=== PATIENT | female | born 1950 | race Asian ===

== ENCOUNTER 2020-08-13 02:00 | Outpatient (CLI) | payer OTHER, SELFPAY ==
[2020-08-13 18:59] LABS: SARS-CoV-2 RNA PCR Negative
== END 2020-08-13 02:01 | disposition home or self-care (01) ==
LOC: ANHCOVIDDT 02:00
PROVIDERS: PCP Family Medicine; Visit Provider Internal Medicine Critical Care Medicine
DX: R68.89 Other general symptoms and signs (principal); Z20.828 Contact with and (suspected) exposure to other viral communicable diseases
CPT/HCPCS: 87635; C9803; U0003

== ENCOUNTER 2020-10-27 09:29 | Outpatient (CLI) | payer OTHER, SELFPAY | END 2020-10-27 09:30 | disposition home or self-care (01) | LOC: ANHCOVIDVC 09:29 | PROVIDERS: PCP Family Medicine | DX: Z23 Encounter for immunization (principal) | CPT/HCPCS: 0001A; 91300 ==

== ENCOUNTER 2020-11-17 09:25 | Outpatient (CLI) | payer OTHER, SELFPAY | END 2020-11-17 09:26 | disposition home or self-care (01) | LOC: ANHCOVIDVC 09:25 | PROVIDERS: PCP Family Medicine | DX: Z23 Encounter for immunization (principal) | CPT/HCPCS: 0002A; 91300 ==

== ENCOUNTER 2022-02-08 10:28 | Outpatient (CLI) | payer OTHER, SELFPAY ==
--- NOTE | ~2022-02-08 | XR_ITS ---
XR lumbar spine 2-3V DATE: 02/08/2022 11:03 INDICATION: Low back pain TECHNIQUE: AP, lateral, coned lateral lumbosacral views COMPARISON: 11/27/2017 lumbar spine FINDINGS: Again noted is prominent degenerative changes apophyseal joints and lower lumbar and lumbos acral area with grade 2 anterolisthesis at L4-5. Moderately severe degenerative disc disease at L4-5 and L5-S1 with mild degenerative disc disease of the remaining lumbar interspaces. No fracture or bone destruction is evident. The lumbar and included lower thoracic pedicles are intac t. The sacroiliac joints appear normal. Status post cholecystectomy. IMPRESSION: Grade 2 anterolisthesis at L4-5 due to degenerative change of the tarsal joints Moderately severe degenerative disc disease at L4-5 and L5-S1, mild degenerative disc disease at the remaining lumbar spine Reviewed, dictated and finalized at location A. IMPRESSION: Grade 2 anterolisthesis at L4-5 due to degenerative change of the t arsal joints Moderately severe degenerative disc disease at L4-5 and L5-S1, mild degenerativ e disc disease at the remaining lumbar spine
--- NOTE | ~2022-02-08 | XR_ITS ---
XR thoracic spine 3V DATE: 02/08/2022 11:03 INDICATION: Low back pain TECHNIQUE: AP, lateral and swimmer views COMPARISON: None FINDINGS: There is mild anterolisthesis and mild degenerative disease at C4-5 and C5-6. Moderately severe degenerative disease at C6-7. There is degenerative spurring of the thoracic spine. No fracture or dislocation or bone destruction. The thoracic pedicles are intact. No paraspinal soft tissue thickening. Surgical clips, right upper quadrant, consistent with cholecystectomy. IMPRESSION: Degenerative changes of the cervical and thoracic spine Status post cholecystectomy Reviewed, dictated and finalized at location A.
== END 2022-02-08 10:29 | disposition home or self-care (01) ==
PROVIDERS: PCP Family Medicine; Visit Provider Family Medicine
DX: M51.36 Other intervertebral disc degeneration, lumbar region (principal); M51.37 Other intervertebral disc degeneration, lumbosacral region; Z90.49 Acquired absence of other specified parts of digestive tract; M51.34 Other intervertebral disc degeneration, thoracic region
CPT/HCPCS: 72072; 72100

== ENCOUNTER 2022-11-21 11:50 | Outpatient (CLI) | payer OTHER, SELFPAY ==
--- NOTE | ~2022-11-21 | XR_ITS ---
Right Shoulder Technique: AP and scapular Y views were obtained. Clinical History: Pain Findings: No fracture or dislocation is seen. Osseous alignment is anatomic. Minimal degenerative spu rring at the AC joint and humerus noted. Soft tissues are unremarkable. Impression: Minimal degenerative spurring, as above. No fracture or dislocation. Reviewed, dictated and finalized at location . Impression: Minimal degenerative spurring, as above. No fracture or dislocation.
== END 2022-11-21 11:51 | disposition home or self-care (01) ==
LOC: ANHIMG 11:56
PROVIDERS: PCP Family Medicine; Visit Provider Family Medicine
DX: M25.511 Pain in right shoulder (principal)
CPT/HCPCS: 73030

== ENCOUNTER 2023-04-01 09:57 | Emergency (ER) | payer OTHER, SELFPAY ==
--- NOTE | ~2023-04-01 | XR_ITS ---
Right Knee Technique: AP, lateral, and oblique views were obtained. Clinical History: Pain Findings: No fracture or dislocation is seen. Right knee arthroplasty hardware is in place, without h ardware complication. Soft tissues are unremarkable. No joint effusion is seen. Impression: No acute abnormality. Right knee arthroplasty in place. Reviewed, dictated and finalized at location . Impression: No acute abnormality. Right knee arthroplasty in place.
[2023-04-01 10:03] VITALS: BP 161/101; PULSE 82; RESP 17; TEMP 36.5; O2SAT 98
--- NOTE | 2023-04-01 10:14 | ED.LOWEXIN ---
HPI - Extremity Injury (Lower) General Chief Complaint: Extremity Injury, Lower Stated Complaint: right knee pain Time Seen by Provider: 04/01/23 10:10 History of Present Illness HPI Narrative: Pt presents with intermittent right knee pain for months. Pt had knee replacement 3 years ago and has had intermittent pain in knee since. Pt denies injury. says the pain has gotten worse over the last few days and they called Dr Nava and were told to come to ER. Related Data Home Medications Medication Instructions Recorded Confirmed Lactobacills gasseri-Bifidobac 1 cap PO DAILY 07/22/19 07/22/19 bifidum,longum 1.5 billion cell capsule (Probiotic Colon Care) amlodipine 10 mg tablet 10 mg PO DAILY 07/22/19 07/22/19 cholecalciferol (vitamin D3) 125 5,000 unit PO DAILY 07/22/19 07/22/19 mcg (5,000 unit) tablet (Vitamin D3) cyanocobalamin (vitamin B-12) 1,000 mcg PO DAILY 07/22/19 07/22/19 1,000 mcg tablet (Vitamin B-12) metformin 500 mg tablet,extended 500 mg PO DAILY 07/22/19 07/22/19 release 24 hr (Glucophage XR) gqbkqukl-mhq-gjxpq acid 0.4 1 tablet PO DAILY 07/22/19 07/22/19 mg-lycopene 300 mcg-lutein 250 mcg tablet (Centrum Silver) omega 1-hbs-zri-fish oil 1,000 mg 1 cap PO DAILY 07/22/19 07/22/19 (120 mg-180 mg) capsule (Fish Oil) Allergies Allergy/AdvReac Type Severity Reaction Status Date / Time codeine Allergy Unknown Unknown Verified 04/01/23 10:07 aspirin AdvReac Intermediate NAUSEA AND Verified 04/01/23 10:07 STOMACH PAIN. NSAIDS (Non-Steroidal AdvReac Intermediate NAUSEA/ Verified 04/01/23 10:07 Anti-Inflamma ABDOMINAL PAIN Review of Systems Review of Systems: All systems reviewed & are unremarkable except as noted in HPI and below PMFSH Past Medical History Medical History (Updated 04/01/23 @ 11:05 by Zoraida Jhaveri III, DO) Arthritis Borderline diabetes mellitus Depression GERD (gastroesophageal reflux disease) History of colon cancer in adulthood s/p resection Hypertension Sleep apnea CPAP Surgical History Surgical History History of cholecystectomy Hx of colectomy Status post total right knee replacement Family History Family History Other Diabetes mellitus Family history of arthritis Family history of gout Family history of malignant neoplasm Hypertension Unknown family medical history Social History Social History Social History: She is and lives with her . She was a homemaker. Her is her durable power staff attorney for healthcare. She has 3 children. Smoking status: Never smoker Alcohol intake: never Substance use: never Substance use type: does not use Living arrangements: with family Occupation/Education: other Additional occupation/education comments: Homemaker Gender identity (if verbalized by the patient): Female Spiritual care concerns: Yes Agree to blood products: Yes Exam Const: General: healthy appearing and no acute distress Nutritional Appearance: well nourished Orientation/consciousness: patient oriented x3 Limitations: no limitations Skin: General skin exam: normal color Wounds: no wounds Neuro: General: moves all extremities and no focal motor deficits Extrem: General: normal to inspection and no clubbing, cyanosis or edema Other: tender to light palpation Psych: Mental Status: mental status grossly normal Affect: normal affect Attitude: cooperative Course Vital Signs Vital signs: Vital Signs Temperature 97.7 F 04/01/23 10:03 Pulse Rate 82 04/01/23 10:03 Respiratory Rate 17 04/01/23 10:03 Blood Pressure 161/101 H 04/01/23 10:03 Pulse Oximetry 98 04/01/23 10:03 Oxygen Delivery Room Air 04/01/23 10:03 Temperature 97.7 F 04/01/23 10:03 P
[2023-04-01] MEDS: fentaNYL CITRATE INJ (*CRX) 100 MCG/2 ML VIAL 50 MCG IM (10:30)
[2023-04-01 11:13] VITALS: BP 166/96; PULSE 73; RESP 18; O2SAT 99
== END 2023-04-01 11:15 | disposition home or self-care (01) ==
PROVIDERS: Emergency Provider Emergency Medicine; PCP Family Medicine
DX: M25.561 Pain in right knee (principal); G89.28 Other chronic postprocedural pain; I10 Essential (primary) hypertension; R73.03 Prediabetes; K21.9 Gastro-esophageal reflux disease without esophagitis; G47.30 Sleep apnea, unspecified; M19.90 Unspecified osteoarthritis, unspecified site; Z96.651 Presence of right artificial knee joint; Z90.49 Acquired absence of other specified parts of digestive tract; Z79.84 Long term (current) use of oral hypoglycemic drugs
CPT/HCPCS: 73564; 96372; 99283; J3010

== ENCOUNTER 2023-07-24 01:33 | Day surgery (SDC) | payer OTHER, SELFPAY ==
[2023-07-08 11:51] VITALS: BMI 33.0
--- NOTE | 2023-07-22 10:33 | SUR.PREOP ---
Patient called regarding upcoming procedure. Reviewed preop instructions, appointment times, and procedure prep.
[2023-07-24 09:41] LABS: Glucose Point of Care 146 mg/dl (65-105)
[2023-07-24 09:42] VITALS: BP 148/105; PULSE 88; RESP 18; TEMP 36.2; O2SAT 98
[2023-07-24] MEDS: LACTATED RINGERS 1,000 ML 150 ML IV CONT (09:45)
--- NOTE | 2023-07-24 10:10 | WPDANESEPPF ---
Anes - Initial Pre Proc Eval Procedure: Operation Date: 07/24/23 11:00 Proposed Procedures p Colonoscopy - Carlyle Martel MD Date/Time: 07/24/23 10:10 Surgeon: Carlyle Martel MD Pre Op Diagnosis: diarrhea,lower.abdom.pain,Melena,Neoplasm screenin Patient Data Age: 72 Gender: F Height: 1.57 m Weight: 80.4 kg Last Vital Signs Temp 97.2 F L 07/24/23 09:42 Pulse 88 07/24/23 09:42 Resp 18 07/24/23 09:42 BP 148/105 H 07/24/23 09:42 Pulse Ox 98 07/24/23 09:42 O2 Del Method Room Air 07/24/23 09:42 Allergies Allergy/AdvReac Type Severity Reaction Status Date / Time codeine Allergy Unknown Unknown Verified 07/24/23 09:40 aspirin AdvReac Intermediate NAUSEA AND Verified 07/24/23 09:40 STOMACH PAIN. NSAIDS (Non-Steroidal AdvReac Intermediate NAUSEA/ Verified 07/24/23 09:40 Anti-Inflamma ABDOMINAL PAIN Home Medications Medication Instructions Recorded Confirmed Type amlodipine 10 mg tablet 10 mg PO DAILY 07/22/19 07/24/23 History cholecalciferol (vitamin D3) 125 5,000 unit PO DAILY 07/22/19 07/24/23 History mcg (5,000 unit) tablet (Vitamin D3) cyanocobalamin (vitamin B-12) 1,000 mcg PO DAILY 07/22/19 07/24/23 History 1,000 mcg tablet (Vitamin B-12) metformin 500 mg tablet,extended 500 mg PO DAILY 07/22/19 07/24/23 History release 24 hr (Glucophage XR) uqwilccz-jke-qilxb acid 0.4 1 tablet PO DAILY 07/22/19 07/24/23 History mg-lycopene 300 mcg-lutein 250 mcg tablet (Centrum Silver) omega 9-lum-wsr-fish oil 1,000 mg 1 cap PO DAILY 07/22/19 07/24/23 History (120 mg-180 mg) capsule (Fish Oil) pantoprazole 40 mg tablet,delayed 40 mg PO QAM #30 tabs 07/24/19 07/24/23 Rx release dicyclomine 10 mg capsule 10 mg PO QID PRN abdominal pain 07/17/23 07/24/23 Rx #120 caps Laboratory Tests 07/24/23 09:38 POC Capillary Glucose 146 H mg/dl (65-105) Patient hx anesthesia problems: none Family hx anesthesia problems: none Results Review: All pre-operative results and documents have been reviewed as part of the pre-operative evaluation. [facility] Past Medical History Medical History (Updated 06/26/23 @ 09:00 by Cherri Crawford APN-C) Adenomatous colon polyp Arthritis BMI 38.0-38.9,adult Borderline diabetes mellitus Calculus of left ureter Depression Diarrhea Epigastric pain GERD (gastroesophageal reflux disease) History of colon cancer in adulthood s/p resection Hypertension IT band syndrome Knee pain Leukocytosis Lower abdominal pain Nephrolithiasis Obstructive sleep apnea Sleep apnea CPAP Systolic murmur Surgical History Surgical History History of cholecystectomy Hx of colectomy Status post total right knee replacement Family History Family History (Updated 06/26/23 @ 08:24 by FRANK Castaneda) Father Mother Sibling Other Diabetes mellitus Family history of arthritis Family history of gout Family history of malignant neoplasm Hypertension Unknown family medical history Social History Social History (Updated 06/26/23 @ 08:25 by FRANK Castaneda) Social History: She is and lives with her . She was a homemaker. Her is her durable power contract attorney for healthcare. She has 3 children. Smoking status: Never smoker Second hand tobacco smoke exposure: No Alcohol intake: never Substance use: never Substance use type: does not use Lack of Transportation: No Lack of Food: Never True Current Housing: I Have Housing Concerned About Future Housing: No Difficulty Paying Gas/Electric Bills: No Difficulty Paying for Meds: No Currently Unemployed: No Education: High School Diploma/GED Difficulty w/ Childcare or Family Care: No Living arrangements: other Additional living arrangements comments: with sp Occupation/Education:
--- NOTE | 2023-07-24 10:20 | WPDHPUPDATE1 ---
History and Physical Update Update Date/Time: 07/24/23 10:20 History and Physical has been reviewed, including an updated exam of the patient. There are NO changes in the patient's condition. Risks, benefits, and alternatives have been discussed and questions answered. Patient agrees to proceed with procedure.
[2023-07-24 10:34] VITALS: BP 117/76; PULSE 70; RESP 19; O2SAT 98
[2023-07-24 10:44] VITALS: BP 132/74; PULSE 80; RESP 21; O2SAT 97
[2023-07-24 10:54] VITALS: BP 130/78; PULSE 71; RESP 19; O2SAT 97
== END 2023-07-24 11:09 | disposition home or self-care (01) ==
PROVIDERS: PCP Family Medicine; Visit Provider Internal Medicine Gastroenterology
PROC: 0DJD8ZZ Inspection of Lower Intestinal Tract, Via Natural or Artificial Opening Endoscopic (ICD-10-PCS; CPT 45378; principal; 2023-07-24 11:00)
DX: Z12.11 Encounter for screening for malignant neoplasm of colon (principal); K64.8 Other hemorrhoids; K63.89 Other specified diseases of intestine; I10 Essential (primary) hypertension; E55.9 Vitamin D deficiency, unspecified; F32.A Depression, unspecified; K21.9 Gastro-esophageal reflux disease without esophagitis; K58.0 Irritable bowel syndrome with diarrhea; M19.90 Unspecified osteoarthritis, unspecified site; G47.33 Obstructive sleep apnea (adult) (pediatric); E66.9 Obesity, unspecified; Z68.32 Body mass index [BMI] 32.0-32.9, adult; Z79.84 Long term (current) use of oral hypoglycemic drugs; Z99.89 Dependence on other enabling machines and devices; Z90.49 Acquired absence of other specified parts of digestive tract; Z86.010 Personal history of colon polyps; Z85.038 Personal history of other malignant neoplasm of large intestine; Z80.9 Family history of malignant neoplasm, unspecified
CPT/HCPCS: 45380; 82948; 88305; J2704; J7120

== ENCOUNTER 2023-08-02 08:00 | Outpatient (RCR) | payer OTHER, SELFPAY ==
--- NOTE | 2023-05-17 09:18 | OPREHPOC ---
Outpatient Therapy Plan of Care This is a Multidisciplinary Plan of Care that may contain components documented by all disciplines (PT, OT, and ST.) PT Problem 1 PT Problem #1 Knowledge Deficit PT Goal 1 Goal 1* indep with HEP PT Problem 2 PT Problem #2 Pain PT Goal 1 Goal 1* pt report pain at worst of 7/10 2* pt report standing, walking, acitvity level with home tasks of 3 hours without pain increase 3* pt report with sleeping, awaken due to pain 1x/ night PT Problem 3 PT Problem #3 Impaired Strength PT Goal 1 Goal 1* pt able to perform 20 reps of mat strengthening exercises for trunk, R and L legs PT Problem 4 PT Problem #4 Impaired Flexibility PT Goal 1 Goal prone hip extension to 0' 1* R 2* L hamstring length with supine SLR to 75' 3* R 4* L anterior hip/quad length with prone knee flexion 100' 5* R 6* L
--- NOTE | 2023-05-17 09:18 | PTOPEVAL1 ---
Assessment and note entered by Carlie Gayle, PT Evaluation Information Assessment Status Evaluation Diagnosis R knee pain Onset February 2023 Subjective Information gradual increase in knee pain, without trauma or injury to knee; had injection 04-05-23, by Dr Nava, did not help her knee pain; xray of knee negative, no follow up with ortho; have history of intermittent back pain; ACTIVITY: do not use assistive device; walking is limited due to knee pain, is able to stand/cook /clean about 2-3 hours, then have to sit and rest due to knee pain; indep with home and self care tasks, is not able to do heavy tasks due to her age; does do some knee exercises, sitting and at [employer]- ride bicycle Reported Pain Level Pain Score Self Report Additional Pain Score Comments pain range in the past week: 4-10/10; front of knee/patella and lateral knee; increase with walking/standing about 2-3 hours; standing with cooking 30 min decrease with sit/rest, pain med-prescription from ; ice, awaken from sleep due to knee pain 2-3 x/night; have a back brace use sometimes, but not really help much; Assessment PT Clinical Summary Samia has the diagnosis of R knee pain and low back pain. Her history includes R TKR, which was check and cleared by Dr Nava with visit and xray; back pain, knee pain B; She had a R ITB injection and it did not help her pain. The pain limits her sleeping, standing and walking tolerances. Her was present and supportive to pt; she has slight language limitations, was able to follow commands and instructions. Occasionally, had to reinstruct her. With the evaluation, she has decreased strength of trunk, hips and knees, with tightness over hamstrings, hip and knees. Skilled PT services are indicated for modalities to decrease pain, therapeutic exercises to increase strength and flexibility of trunk and hips ; education for home exe
--- NOTE | 2023-06-10 08:24 | PCPTNOTE ---
Pt. canceled 06/10/23 appointment with illness.
--- NOTE | 2023-06-20 08:54 | OPREHPOC ---
Outpatient Therapy Plan of Care This is a Multidisciplinary Plan of Care that may contain components documented by all disciplines (PT, OT, and ST.) PT Problem 1 PT Problem #1 Knowledge Deficit PT Goal 1 Goal 1* indep with HEP Progress Met Comment 06-19-23 progress met goal continue to progress education/HEP PT Problem 2 PT Problem #2 Pain PT Goal 1 Goal 1* pt report pain at worst of 7/10 2* pt report standing, walking, activity level with home tasks of 3 hours without pain increase 3* pt report with sleeping, awaken due to pain 1x/ night Progress Partially Met Comment 06-19-23 progress met goal 3 continue towards goals # 1 and 2 PT Problem 3 PT Problem #3 Impaired Strength PT Goal 1 Goal 1* pt able to perform 20 reps of mat strengthening exercises for trunk, R and L legs Progress Partially Met Comment 06-19-23 progress partially met goal- not able to do 20 for all exercises continue towards goal ADD goal #2: 2 minute walking test distance of 350' without pain increase PT Problem 4 PT Problem #4 Impaired Flexibility PT Goal 1 Goal prone hip extension to 0' 1* R 2* L hamstring length with supine SLR to 75' 3* R 4* L anterior hip/quad length with prone knee flexion 100' 5* R 6* L Progress Partially Met Comment 06-19-23 progress met goals 1,2,5,6 continue towards goals 3 & 4
--- NOTE | 2023-06-20 08:54 | PTOPPROG ---
Assessment and note entered by Carlie Gayle, PT Evaluation Information Assessment Status Progress Diagnosis R knee pain, radicular LBP Onset February 2023 Subjective Information feel like therapy is helping; pain is reduced; more comfortable; want to continue with more therapy; saw few days ago and he said to continue therapy; PAIN: rating in the past week 0-8/10; intermittent pain into both legs, posterior to above knees increase pain: walking/standing 15 min decrease pain: ice, with sleeping, awaken from sleep 4-5x/wk with back pain; is not taking any pain meds; Assessment PT Clinical Summary Samia has received 8 PT sessions. Compared to the initial evaluation: has improved with: pain rating from 4-10/10 to 0-8/10; reports sleeping tolerance from awakening 2-3 x/night to 4 -5x/wk; flexibility of hips; strength of hips and trunk; 2 minute walking test distance from 235' to 300' and did not have increase pain or reach out to furniture for walking balance. Education for home exercises, posture and pain control. The goals were partially met. Continue PT treatment. Plan of Care Interventions Electrical Stimulation,Hot Pack/Cold Pack,Manual Therapy,Neuro Re-education,Patient/Caregiver Education,Therapeutic Activities,Therapeutic Exercise,Ultrasound,Other Other Interventions IASTM, taping PT Services Indicated Yes Treatment Frequency and 2x/wk for 3 weeks Duration These treatments will address the objective and functional deficits as defined above. The patient will be advanced safely and appropriately in order for the patient to progress towards his/her prior level of function. Additional exercises will be introduced and as well as a comprehensive home exercise program upon discharge, if needed, ?to ensure carryover of functional gains achieved in the clinic. This treatment plan has been reviewed and agreement upon by the patient.
--- NOTE | 2023-07-17 08:53 | PCPTNOTE ---
pt canceled today's reeval appt due to being ill.
--- NOTE | 2023-08-02 08:43 | PTOPDC ---
Assessment and note entered by Carlie Gayle, PT Discharge Information Assessment Status Discharge Diagnosis R knee pain/ LBP Onset February 2023 Subjective Information is doing much better- less pain; having more medical issues--diarrhea; is having colonoscopy and to dr for it. have been doing the exercises; Reported Pain Level Pain Score 3: Self Report Additional Pain Score Comments pain at worst in past few days 6/10; pain in low back into L LE to knee constant pain in leg activity tolerance--walking,standing with home tasks 1 hour before have to sit down due to pain; awaken from sleep due to pain 2x/night decrease pain with heat, rest, back brace; Assessment PT Clinical Summary Mrs. Harley has [id number] PT sessions. Compared to the last progress report: pain at worst from 8 to 6/10; radicular pain from both legs to L only, to knee; reported sleeping better awaken from 3-4 to 1-2x/night due to pain; flexibility of both hamstring increased slightly, with the same for bilateral hip extension and anterior hip/quad; increase strength with mat exercises; education completed for HEP. The goals were partially met. Discharge PT services. Plan of Care PT Services Indicated No
== END 2023-08-02 09:19 | disposition home or self-care (01) ==
LOC: ANHPT 08:00
PROVIDERS: PCP Family Medicine; Visit Provider Family Medicine
DX: M25.561 Pain in right knee (principal); M54.50 Low back pain, unspecified
CPT/HCPCS: 97014; 97110; 97112; 97140; 97162; 97530; G0283

== ENCOUNTER 2024-07-21 08:21 | Emergency (ER) | payer OTHER, SELFPAY ==
[2024-07-21 08:23] VITALS: BP 150/84; PULSE 80; RESP 16; TEMP 36.4; O2SAT 98
--- NOTE | 2024-07-21 09:28 | ED.SKABFB ---
HPI - Skin/Abscess/Foreign Bdy General Chief complaint: Skin/Abscess/Foreign Body Stated complaint: rash Time Seen by Provider: 07/21/24 08:55 History of Present Illness HPI narrative: Patient is a 68-year-old female presents to the ER with a rash that started on her chest approximately 1 month ago. She and her report they went to see her primary care provider who put her on triamcinolone cream and Benadryl cream. Patient reports this treatment regimen is helping relieve her symptoms. She is now experiencing a rash that has spread across her chest, to her back, and down her arms. Patient denies any new detergents, soaps, lotions. She denies any autoimmune history. Patient denies shortness of breaths, pain, urinary symptoms. She endorses a history of diabetes. Related Data Home Medications Medication Instructions Recorded Confirmed amlodipine 10 mg tablet 10 mg PO DAILY 07/22/19 04/22/24 cholecalciferol (vitamin D3) 125 5,000 unit PO DAILY 07/22/19 04/22/24 mcg (5,000 unit) tablet (Vitamin D3) cyanocobalamin (vitamin B-12) 1,000 mcg PO DAILY 07/22/19 04/22/24 1,000 mcg tablet (Vitamin B-12) metformin 500 mg tablet,extended 500 mg PO DAILY 07/22/19 04/22/24 release 24 hr (Glucophage XR) aqahykzb-abu-wocdi acid 0.4 1 tablet PO DAILY 07/22/19 04/22/24 mg-lycopene 300 mcg-lutein 250 mcg tablet (Centrum Silver) omega 9-tpb-brc-fish oil 1,000 mg 1 cap PO DAILY 07/22/19 04/22/24 (120 mg-180 mg) capsule (Fish Oil) Allergies Allergy/AdvReac Type Severity Reaction Status Date / Time codeine Allergy Unknown Unknown Verified 07/21/24 08:25 aspirin AdvReac Intermediate NAUSEA AND Verified 07/21/24 08:25 STOMACH PAIN. NSAIDS (Non-Steroidal AdvReac Intermediate NAUSEA/ Verified 07/21/24 08:25 Anti-Inflamma ABDOMINAL PAIN Review of Systems Review of Systems: All systems reviewed & are unremarkable except as noted in HPI and below PMFSH Past Medical History Medical History Adenomatous colon polyp Arthritis BMI 38.0-38.9,adult Borderline diabetes mellitus Calculus of left ureter Depression Diarrhea Epigastric pain GERD (gastroesophageal reflux disease) History of colon cancer in adulthood s/p resection Hypertension Irritable bowel syndrome (IBS) IT band syndrome Knee pain Leukocytosis Lower abdominal pain Nephrolithiasis Obstructive sleep apnea Sleep apnea CPAP Systolic murmur Surgical History Surgical History History of cholecystectomy Hx of colectomy Status post total right knee replacement Family History Family History Father Mother Sibling Other Diabetes mellitus Family history of arthritis Family history of gout Family history of malignant neoplasm Hypertension Unknown family medical history Social History Social History Social History: She is and lives with her . She was a homemaker. Her is her durable power contracts attorney for healthcare. She has 3 children. Smoking status: Never smoker Second hand tobacco smoke exposure: No Alcohol intake: never Substance use: never Substance use type: does not use Lack of Transportation: No Lack of Food: Never True Current Housing: I Have Housing Concerned About Future Housing: No Difficulty Paying Gas/Electric Bills: No Difficulty Paying for Meds: No Currently Unemployed: No Education: High School Diploma/GED Difficulty w/ Childcare or Family Care: No Living arrangements: other Additional living arrangements comments: with sp Occupation/Education: other Additional occupation/education comments: Homemaker Gender identity (if verbalized by the patient): Female Spiritual care concerns: Yes Agree to blood products: Yes Exam Narrative: GENERAL: Well appearing, well-nourished, non-toxic, in no acute distress. HEAD: Normocephalic, atraumatic. NECK: Supple. No adenopathy, no masses. RESPIRATORY: Airway patent, respirations nonlabored. Clear to auscultation bilaterally, no rales, rhonchi, wheezing. CARDIOVASCULAR: Regular rate and rhythm without murmurs, rubs, or gallops. Peripheral pulses 2+ and equal bilaterally. ABDOMINAL: Soft, nontender, nondistended, no hepatosplenomegaly. Normoactive BS. MUSCULOSKELETAL: Moves all extremities. Strength/ROM intact without gross deformities. SKIN: Warm, dry, normal color. No rashes. NEURO: A&O X3. Speech clear. Cranial nerves II-XII grossly intact. Steady gait. No ataxic movements. PSYCHIATRIC: Appropriate mood and affect. Normal interaction. Course Vital Signs Vital signs: Vital Signs Temperature 36.4 C 07/21/24 08:23 Pulse Rate 80 07/21/24 08:23 Respiratory Rate 16 07/21/24 08:23 Blood Pressure 150/84 H 07/21/24 08:23 Pulse Oximetry 98 07/21/24 08:23 Oxygen Delivery Room Air 07/21/24 08:23 Temperature 36.4 C 07/21/24 08:23 Pulse Rate 80 07/21/24 08:23 Respiratory Rate 16 07/21/24 08:23 Blood Pressure 150/84 H 07/21/24 08:23 Pulse Oximetry 98 07/21/24 08:23 Oxygen Delivery Room Air 07/21/24 08:23 MDM - Skin/Abscess/Foreign Bdy MDM Narrative Medical decision making narrative: Patient is a 68-year-old female presents to the ER with a rash that started on her chest approximately 1 month ago. She and her report they went to see her primary care provider who put her on triamcinolone cream and Benadryl cream. Patient reports this treatment regimen is helping relieve her symptoms. She is now experiencing a rash that has spread across her chest, to her back, and down her arms. Patient denies any new detergents, soaps, lotions. She denies any autoimmune history. Patient denies shortness of breaths, pain, urinary symptoms. She endorses a history of diabetes and takes Metformin daily. Labs Ordered: None needed Imaging Ordered: None needed Disposition/Plan: Patient reports she feels better after her steroid injection. Will discharge patient with prescription of hydrocortisone 2.5% which she should use twice a day. She should she also purchased ozyv-fyx-aukbuwk Aquaphor to help moisturize the skin. Will also discharge patient with Medrol Dosepak. Patient needs to follow-up with dermatology. She and her verbalized understanding of plan and are in agreement. Differential Diagnosis Differential diagnosis: Likely urticaria, cellulitis, eczema and contact dermatitis Discharge Plan Discharge Clinical Impression: Contact dermatitis, Eczema Patient Disposition: Home, Self-Care Condition: Stable Instructions: Antibiotic Form, Contact Dermatitis (ED), Eczema (ED) Additional Instructions: Please follow-up with dermatology as soon as possible. Return to the ER with any worsening symptoms. Please take all medications as prescribed. Prescriptions: New methylprednisolone [Medrol (Camilo)] 4 mg tablets,dose pack See Rx Instructions .ROUTE .COMPLEX Qty: 21 0RF Rx Instructions: for 6 days hydrocortisone 2.5 % cream 1 applic topical BID PRN (Reason: skin irritation) 7 Days Qty: 28 0RF No Action cholestyramine (with sugar) 4 gram powder 4 g PO BID Qty: 368.76 5RF Rx Instructions: administer w/meal; avoid other meds within 1hr before or 4-6hr after dose cyanocobalamin (vitamin B-12) [Vitamin B-12] 1,000 mcg Tablet 1,000 mcg PO DAILY amlodipine 10 mg tablet 10 mg PO DAILY metformin [Glucophage XR] 500 mg tablet extended release 24 hr 500 mg PO DAILY Centrum Silver 0.4-300-250 mg-mcg-mcg Tablet 1 tablet PO DAILY cholecalciferol (vitamin D3) [Vitamin D3] 5,000 unit Tablet 5,000 unit PO DAILY omega 6-vwx-avo-fish oil [Fish Oil] 1,000 mg (120 mg-180 mg) Capsule 1 cap PO DAILY pantoprazole 40 mg Tablet,Delayed Release (Dr/Ec) 40 mg PO QAM Qty: 30 0RF hyoscyamine sulfate 0.375 mg tablet extended release 12 hr See Rx Instructions .ROUTE .COMPLEX Qty: 60 0RF Dose Instruction: TAKE 1 TABLET BY MOUTH EVERY 12 HOURS Rx Instructions: TAKE 1 TABLET BY MOUTH EVERY 12 HOURS Follow-up/Referrals: Miller Mcgrath MD [Primary Care Provider] - Time of Disposition: 10:47
[2024-07-21] MEDS: diphenhydrAMINE HCl CAP 25 MG CAPSULE 50 MG PO (09:34)
[2024-07-21] MEDS: FAMOTIDINE 20 MG TABLET PO (09:34)
[2024-07-21] MEDS: methylPREDNISolone SOD SUCC 125 MG VIAL IM (09:34)
[2024-07-21] MEDS: HYDROCORTISONE 2.5% CREAM 30 GM TUBE 1 APPLIC TOPICAL (09:42)
[2024-07-21 11:04] VITALS: BP 144/85; PULSE 88; RESP 14; O2SAT 99
== END 2024-07-21 11:06 | disposition home or self-care (01) ==
PROVIDERS: Emergency Provider Registered Nurse; PCP Family Medicine
DX: L25.9 Unspecified contact dermatitis, unspecified cause (principal); I10 Essential (primary) hypertension; K58.9 Irritable bowel syndrome, unspecified; K21.9 Gastro-esophageal reflux disease without esophagitis; M19.90 Unspecified osteoarthritis, unspecified site; G47.33 Obstructive sleep apnea (adult) (pediatric); R73.03 Prediabetes; R01.1 Cardiac murmur, unspecified; Z96.651 Presence of right artificial knee joint; Z85.038 Personal history of other malignant neoplasm of large intestine; Z87.442 Personal history of urinary calculi; Z90.49 Acquired absence of other specified parts of digestive tract; Z79.84 Long term (current) use of oral hypoglycemic drugs; Z79.899 Other long term (current) drug therapy
CPT/HCPCS: 96372; 99283; A9270; J2919

== ENCOUNTER 2024-11-06 09:26 | Outpatient (CLI) | payer OTHER, SELFPAY ==
--- NOTE | ~2024-11-06 | CT_ITS ---
CT of the Abdomen and Pelvis: Indication: Abdominal pain Technique: 2.5 mm axial scans were obtained through the abdomen and pelvis following intravenous adm inistration of 100 cc of Omnipaque 350. Dose reduction technique was used on this scan by utilizing a utomated exposure control and iterative reconstruction technique. The dose-length product (DLP) was 5 69.75 mGy-cm. Findings: Scans through the lung bases are unremarkable. There is diffuse hepatic steatosis. Cholecystectomy clips are present. The spleen, pancreas, adrenals and kidneys are within normal limits. No evidence of aortic aneurysm. No lymphadenopathy. No bowel obstruction or bowel wall thickening. There is no evidence to suggest acute appendicitis. Images through the pelvis were performed. Urinary bladder unremarkable. No pelvic mass evident. No as cites. Impression: No acute abnormalities seen. Diffuse hepatic steatosis. Reviewed, dictated and finalized at [facility]. Impression: No acute abnormalities seen. Diffuse hepatic steatosis.
[2024-11-06 10:01] LABS: Estimated Glomerular Filt Rate 54
--- OUTSIDE RECORDS SUMMARY | 2024-11-06 10:03 | XMS_ITS | Clinical Summary ---
Author Organization [facility] Address [address] [place] [address] Care Team Providers Care Atmospheric Drier Tender Name Role Phone Miller Mcgrath MD Primary Care Provider Source Comments [facility],non-owned Affiliates and Associated Physician Practices is amultiple site organization consisting of ambulatory clinics and hospital sitesin [place], [place], [place] and [place]. This disclosure is being madepursuant to the Care Everywhere program and may not contain all information available regarding this patient. Last updated 18.[facility] Allergies Active Allergy Reactions Criticality Noted Date Comments Aspirin Rash Medium 09/09/2019 Codeine Rash Medium 09/09/2019 Nsaids Rash Medium 09/09/2019 Medications * Be aware that medications may not be up to date on this document. Alwaysverify current medications with the patient. Medication Sig Dispensed Refills Start Date End Date Status amLODIPine (NORVASC) 10 MG tablet Take 1 tablet by mouth once daily Active hydrocortisone (HYTONE) 1 % cream as needed 07/27/2019 Active metFORMIN ER 24hr (GLUCOPHAGE XR) 500 MG tablet Take 1 tablet by mouth once daily Active pantoprazole EC (PROTONIX) 40 MG tablet Take 1 tablet by mouth every 8 hours as needed Active vitamin D, cholecalciferol, 50 MCG (1999 UT) tablet Take 2,000 Units by mouth once daily Active Misc Natural Products (JOINT SUPPORT COMPLEX PO) Take 1 tablet by mouth once daily Active Cyanocobalamin (B-12) 1000 MCG Take 1 tablet by mouth once daily Active MEGARED OMEGA-3 KRILL OIL 500 MG CAPS Take 1 tablet by mouth once daily Active Multiple Vitamins-Minerals (CENTRUM SILVER ADULT 50+ PO) Take 1 tablet by mouth once daily Active acetaminophen (TYLENOL) 500 MG tablet Take 1 tablet by mouth every 6 hours as needed for Fever or Pain Maximum allowable Acetaminophen amount = 4 Grams (4000 mg) / 24 hours. 60 tablet 09/15/2019 Active traMADol (ULTRAM) 50 MG tablet Take 1 tablet by mouth every 6 hours as needed for Pain 12 tablet 09/15/2019 Active tamsulosin (FLOMAX) 0.4 MG capsule Take 1 capsule by mouth once daily At the same time every day after a meal. 30 capsule 09/15/2019 Active Social History Tobacco Use Types Packs/Day Years Used Date Smoking Tobacco: Never Smokeless Tobacco: Never Alcohol Use Standard Drinks/Week Comments Never 0 (1 standard drink = 0.6 oz pur e alcohol) AUDIT-C Answer Date Recorded Frequency of Alcohol Consumption Never 09/09/2019 Average Number of Drinks Not on file 020 Frequency of Binge Drinking Not on file 08/26 Sex and Gender Information Value Date Recorded Sex Assigned at Not on file Gender Identity Not on file Sexual Orientation Not on file Last Filed Vital Signs Vital Sign Reading Time Taken Comments Blood Pressure 153/85 09/15/2019 8:30 PM PATCH SANDER Pulse 73 09/15/2019 8:30 PM PATCH SANDER Temperature 36.4 C (97.6 F) 09/15/2019 7:10 PM PATCH SANDER Respiratory Rate 25 09/15/2019 8:30 PM PATCH SANDER Oxygen Saturation 98% 09/15/2019 8:30 PM PATCH SANDER Inhaled Oxygen Concentration - - Weight 78 kg (172 lb) 09/15/2019 2:23 PM PATCH SANDER Height 157.5 cm (5' 2 ) 09/15/2019 2:23 PM PATCH SANDER Body Mass Index 31.46 09/15/2019 2:23 PM PATCH SANDER Plan of Treatment Health Maintenance Due Date Last Done Comments BONE DENSITY TESTING 1950 HEPATITIS C SCREENING 08/04/1966 DTAP/TDAP/TD VACCINES (1 - Tdap) 1967 PNEUMOCOCCAL VACCINE 50+ (1 of 1 - PCV) 1998 ZOSTER VACCINE (1 of 2) 1998 Respiratory Syncytial Virus (RSV) Vaccine Pt: or over 60 yrs (1 - 1-dose 75+ series) 2023 COVID-19 VACCINE ( - 2023-2 5 season) 2024 INFLUENZA VACCINE (#1) 2024 DEPRESSION SCREENING 08/26/2024 HEPATITIS B VACCINE Aged Out No longe r eligible based on patient's age to complete this topic HIB VACCINE Aged Out No longer eligi ble based on patient's age to complete this topic HPV VACCINE Aged Out No longer eligi ble based on patient's age to complete this topic MENINGOCOCCAL (Group B) VACC INE SHARED DECISION-MAKING Aged Out No longer eligibl e based on patient's age to complete this topic MENINGOCOCCAL GROUPS A/C/Y/W VACCINE Aged Out No longer eligible b ased on patient's age to complete this topic Medical Devices Implanted Type Area Help Desk Manager Device Identifier Shelf Expiration Date Model / Serial / Lot Stent Uret 6fr 24cm 2 Drmtr Bldr Loop Implanted:Qty: 1 on 09/15/2019 by Henrietta Garcia DO at [facility] Left: Ureter R[employer] Scimed 11/23/2021 [id number] / / [id number] Advance Directives Documents on File Type Date Recorded Patient Engine Room Helper Expl anation Adv Directive/Living Will/POA 09/16/2019 3:16 PM * Full Code (Latest Code Status on File) Date Activated Date Inactivated Comments 09/15/2019 1:44 PM 09/15/2019 10:32 PM Care Teams Atmospheric Drier Tender Relationship Specialty Start Date End Date Miller Mcgrath MD [address] [place] [address] PCP - General 09/01/19
--- OUTSIDE RECORDS SUMMARY | 2024-11-06 10:03 | XMS_ITS | Continuity of Care Document ---
Author Organization [facility] Address [address] [place] [address] Phone Care Team Providers Care Exchange Engineer Name Role Phone Mayuri Meraz MD Unavailable Unavailable Allergies, Adverse Reactions, Alerts Substance Reaction Status Criticality No Known Allergies Active No Inform ation Medications Medication Instructions Dosage Effective Dates (start - stop) Status Comments Caltrate 600+D Plus Minerals 600 mg calcium-400 unit tablet po bid - Active Norvasc 10 mg tablet take 1 tablet by oral route every day 10 MG - Active dc 5 mg poq day Norvasc 10 mg tablet take 1 tablet by oral route every day 10 MG - No Longer Active dc 5 mg poq day clonazepam 0.5 mg tablet take 1 tablet by oral route 2 times every day 0.5 MG - No Longer Active Bentyl 10 mg capsule take 1 capsule by oral route 3 times every day - No Longer Active tramadol 50 mg tablet take 1 tablet by oral route every 12 hours as needed 50 MG - No Longer Active knee pain Procedures Procedure Date OFFICE OUTPT EST 25 MIN OFFICE OUTPT EST 25 MIN COLLECTION OF VENOUS BLOOD BY VENIPUNCTU RE OFFICE OUTPT EST 25 MIN Pneumococcal polysaccharide vaccine, 23- valent (Pneumo-Vax 23) to age 2+ OFFICE/OUTPATIENT VISIT, EST OFFICE/OUTPATIENT VISIT, EST COLLECTION OF CAPILLARY BLOOD SPECIMEN ( EG, FINGER, HEEL, EAR STICK) PERIODIC COMPREHENSIVE PREVENTIVE MED RE E/M; ESTABLISHED PATIENT; 40-64 COLLECTION OF VENOUS BLOOD BY VENIPUNCTU RE OFFICE/OUTPATIENT VISIT, EST OFFICE/OUTPATIENT VISIT, EST ANNUAL GYNECOLOGICAL EXAMINA TION; CLINICAL BREAST EXAMINATION WITHOUT PELVIC OFFICE/OUTPATIENT VISIT, EST OFFICE CONSULT, 15 MIN, 3 KE Y COMPS: PROB FOCUS HX; PROB FOCUS EXAM; STRTFWD COMPRE METAB PANEL OFFICE/OUTPATIENT VISIT, EST BLOOD COUNT; COMPLETE (CBC), AUTOMATED (HGB, HCT, RBC, WBC AND PLATELET COUNT) THYROID STIMULATING HORMONE (TSH) CALCIFEDIOL (25-OH VITAMIN D-3) 008 LIPID PANEL OFFICE/OUTPATIENT VISIT, EST TEST OF STOOL TO DETECT BLOOD 7 URNLS DIP STICK/TABLET RGNT AUTO W/O ANGELI CYTP C/V AUTO THIN LYR PREPJ SCR SYS PHY S PERIODIC COMPREHENSIVE PREVENTIVE MED RE E/M; ESTABLISHED PATIENT; 40-64 OFFICE/OUTPATIENT VISIT, EST OFFICE OUTPT EST 25 MIN LIPID PANEL BASIC METABOLIC PANEL CALCIUM TOTAL THYROID STIMULATING HORMONE (TSH) URNLS DIP STICK/TABLET RGNT AUTO W/O ANGELI BLOOD COUNT; COMPLETE (CBC), AUTOMATED (HGB, HCT, RBC, WBC AND PLATELET COUNT) OFFICE OUTPT EST 10 MIN Advance Directives Directive Yes / No Effective Date File Name No Information Encounters Encounter Description Practice Location Reason(s) For Visit Diagnoses Date Provider Providers Copied on Encounter OFFICE OUTPT EST 25 MIN MONY Bar[address], [place], [place], [address] , [place] tel:[phone] [facility] hypertension (chief complaint)Anx iety (chief complaint)IBS . had colon ca removed flu next month (chief complaint) HypertensionA bdominal pain, generalizedBM I 33.0-33.9,ifeoma ltBreast screening 4 Mariya Messina. [address], [place], [place], [address], [place]. tel:[phone] Referring Provider: Mayuri Meraz, [address], [place], [address] . tel:[phone] OFFICE OUTPT EST 25 MIN [facility], [address], [place], [place], [address] , [place] tel:[phone] [facility] BP check (chief complaint)2 weeks colon ca follow up (chief complaint)abd ominal discomfort (chief complaint) Routine Medical ExamHypertens ion, BenignHistory of colon cancerAnxiety Routine Medical Exam 4 Mariya Messina. [address], [place], [place], [address], [place]. tel:[phone] Referring Provider: Mayuri Meraz, [address], [place], [address] . tel:[phone] OFFICE OUTPT EST 25 MIN [facility], [address], [place], [place], [address] , [place] tel:[phone] [facility] BP check (chief complaint)s/p cholectopmy (chief complaint) Abdominal pain, generalizedAn xietyCancer of rectum, rectosigmoid junction, and anusPneumonia Vaccine 4 Mariya Messina. [address], [place], [place], [address], [place]. tel:[phone] Referring Provider: Mayuri Meraz, [address], [place], [address] . tel:[phone] OFFICE/OUTPATI ENT VISIT, EST [facility], [address], [place], [place], [address] , tel:[phone] [facility] resent lab adenocancer polyps has appoinmnet Am (chief complaint) Abnormal laboratory testEncounter for counseling 3 Mariya Messina. [address], [place], [place], [address], [place]. tel:[phone] [facility], [address], [place], [place], [address] , [place] tel: [phone] [facility] Rectal massAdenocarc inoma of rectum 3 Pachalla Mayuri. [address], [place], [place], [address], [place]. tel:[phone] [facility], [address], [place], [place], [address] , [place] tel: [phone] [facility] Rectal massHiatal hernia 3 Pachalla Mayuri. [address], [place], [place], [address], [place]. tel:[phone] OFFICE/OUTPATI ENT VISIT, EST [facility], [address], [place], [place], [address] , tel: [phone] [facility] BP check (chief complaint)art hritis (chief complaint) HypertensionB DC 33.0-33.9,ifeoma ltAbdominal painDegenerat elbert arthritis of knee 3 Pachalla Mayuri. [address], [place], [place], [address], [place]. tel:[phone] PERIODIC COMPREHENSIVE PREVENTIVE MED REE/M; ESTABLISHED PATIENT; 40-64 [facility], [address], [place], [place], [address] , [place] tel: [phone] [facility] DM/HTN (chief complaint)art hritis (chief complaint)abd ominal discomfort (chief complaint)anx iety (chief complaint) Routine general medical examination at a health care facilityBenig n essential hypertensionD iabetes mellitus without mention of complication, type II or unspecified type, not stated as uncontrolledA nxiety state, unspecifiedPa in in joint involving lower legAbdominal pain, epigastricIns omnia with sleep apnea, unspecifiedRo utine general medical examination at a health care facility 3 Pachalla Mayuri. [address], [place], [place], [address], [place]. tel:[phone] OFFICE/OUTPATI ENT VISIT, EST [facility], [address], [place], [place], [address] , [place] tel: [phone] [facility] hypertension (chief complaint) Unspecified essential hypertension 9 No Information OFFICE/OUTPATI ENT VISIT, EST [facility], [address], [place], [place], [address] , [place] tel: [phone] [facility] Unspecified essential hypertension 9 No Information OFFICE/OUTPATI ENT VISIT, EST [facility], [address], [place], [place], [address] , [place] tel: [phone] [facility] SCRN MAL BRI BREAST NEC 8 No Information OFFICE CONSULT, 15 MIN, 3 BAKER COMPS: PROB FOCUS HX; PROB FOCUS EXAM; STRTFWD [facility], [address], [place], [place], [address] , [place] tel: [phone] [facility] SCRN MAL BRI BREAST NOS 8 Elder Sanchez. [address], [place], [place], [address]. tel:[phone] OFFICE/OUTPATI ENT VISIT, EST [facility], [address], [place], [place], [address] , [place] tel: [phone] [facility] MORBID OBESITYBENIGN HYPERTENSIONJ OINT PAIN-L/LEG 8 Pachalla Mayuri. [address], [place], [place], [address], [place]. tel:[phone] OFFICE/OUTPATI ENT VISIT, EST [facility], [address], [place], [place], [address] , [place] tel: [phone] [facility] OBESITY NOSBENIGN HYPERTENSION 8 Pachalla Mayuri. [address], [place], [place], [address], [place]. tel:[phone] PERIODIC COMPREHENSIVE PREVENTIVE MED REE/M; ESTABLISHED PATIENT; 40-64 [facility], [address], [place], [place], [address] , [place] tel:[phone] [facility] ROUTINE MARKETING PROGRAMS MANAGER EXAMINATIONBE NIGN HYPERTENSIONJ OINT PAIN-ANKLEHX OF PAST NONCOMPLIANCE 7 Pachalla Mayuri. [address], [place], [place], [address], . tel:[phone] OFFICE/OUTPATI ENT VISIT, EST [facility], [address], [place], [place], [address] , tel: [phone] [facility] OBESITY NOSHYPERLIPID EMIA NEC/NOSHYPERT ENSION NOS 200 7 Pachalla Mayuri. [address], [place], [place], [address], . tel:[phone] OFFICE OUTPT EST 25 MIN [facility], [address], [place], [place], [address] , tel: [phone] [facility] DEPRESSIVE DISORDER NECHYPERTENSI ON NOSMORBID OBESITY 7 Pachalla Mayuri. [address], [place], [place], [address], . tel:[phone] OFFICE OUTPT EST 10 MIN [facility], [address], [place], [place], [address] , tel: [phone] [facility] SCRN MAL BRI BREAST NOS Apr- 2200 6 No Information Family History Family Member Type Diagnosis Age At Onset No Information Immunizations Vaccine Date Status Comments Pneumo (2 yrs or older)(PPV) administered Note: pt tolerated injection well in left arm. rml ; Source: New Immunization Record Payers Payer name Insurance type Covered republican ID Authoriza tion(s) No Information Social History Type Description Quantity Date Captured Comments Alcohol Use Details Unknown Caffeine Use Details Unknown Tobacco Use Status No Information Smoking Status No Information Sex Female Vital Signs Date / Time: Height Weight BMI Pulse Rate Blood Pressure Temperature Respiratory Rate Body Surface Area Head Circumference Head Circ. Percentile Wt./Nicolás. Percentile BMI percentile Pulse Ox Inhaled Ox 11:16 AM 62.00 in 75.659 kg (166.80 lbs) 30.5 0 kg/m eter (2) 70 /min 127/82 mm[Hg] 97.90 F Chief Complaint And Reason For Visit From encounter dated '03/30/2014 11:00'. hypertension (chief complaint). Description: Risk factors include age over age 60. Pertinent negatives include dyspnea, epistaxis, nausea and tinnitus. Anxiety (chief complaint) IBS . had colon ca removed flu next month (chief complaint) Reason For Referral Reason For Referral No Information Plan Of Treatment Date Type Action Status Goal Influenza Vaccin e. Due on due Goal AST. Due on due Goal Sigmoidoscopy. Due on due Goal PAP. Due on due Goal TD Vaccine. Due on 14 due Goal FOBT. Due on due Goal Breast exam. Due on due Goal H&P. Due on due Goal Colonoscopy. Due on due Goal MARKETING PROGRAMS MANAGER exam. Due on due Goal BMP fasting. Due on due Goal ALT. Due on due Goal ALT. Due on due Goal FOBT. Due on due Goal Influenza Vaccin e. Due on due Goal Colonoscopy. Due on due Goal MARKETING PROGRAMS MANAGER exam. Due on due Goal Lipid Panel. Due on due Goal H&P. Due on due Goal AST. Due on due Goal PAP. Due on due Goal TSH. Due on due Goal Breast exam. Due on 014 due Goal Mammogram. Due on 3 due Goal Sigmoidoscopy. Due on due Goal TD Vaccine. Due on 14 due Goal BMP fasting. Due on 014 due Referral Referred To: [facility] Oncology [phone] Ordered: Referral: [facility] Oncology. Oncology/Sub-specialty. ordered Referral Referred To: [facility] Ordered: Referral: [facility]. Gastroenterology. ordered Referral Referred To: [address], [address] [phone] Ordered: Referral: [facility]. Orthopedics. Evaluate and treat. Appointment date/timeframe: 12/31/2012 ordered Referral Referred To: [address], [address] [phone] Ordered: Referral: [facility]. Radiology. ordered Referral Referred To: [address], [address] [phone] Ordered: Referral: [facility]. Gastroenterology. ordered Referral Referred To: [facility] Ordered: Referral: [facility]. Sleep Studies. ordered Future Order: Radiology Order Sc reening Mammography, Bilateral, Digital ([id number]), Ordered on: Ordered History Of Present Illness Encounter Date Complaint History Of Prese nt Illness hypertension Risk factors inc lude age over age 60. Pertinent negatives include dyspnea, epistaxis, nausea and tinnitus. Anxiety IBS . had colon ca r emoved flu next month Functional Status Date Functional Assessmen t Pain Score 0/10 Instructions Date Instruction Additional Infor mation diet excerises Related to BMI 3 3.0-33.9,adult avoid latise avoid gluteen diet Related to Abdominal pain, generalized Low salt dietExercis e 1/2 hour 3 to 4 times a weekTake medicines daily Related to Hypertension Home blood pressure check Take medications as prescribed Increase activity level Home blood pressure check Increase activity level Take medications as prescribed Home blood pressure check Increase activity level Take medications as prescribed Increase activity level Home blood pressure check Glucose check 1 times per day Take medications as prescribed Assessments Type Assessment Date assessment Hypertension assessment Abdominal pain, generalized assessment BMI 33.0-33.9,adult assessment Breast screening Mental Status Date Cognitive Assessment Orientation - [place] ed to time, place, person, situation. Patient Care Teams Name Effective Dates (start - stop) Status Members No Information
--- OUTSIDE RECORDS SUMMARY | 2024-11-06 10:03 | XMS_ITS | Data Portability ---
Author Organization [facility] Address [address] [place] [address] Care Team Providers Care Transportation Analyst Name Role Phone DON LEDESMA Primary Care Provider Assessment No assessment recorded. Plan of Treatment Reminders Order Date Submit Date Provider Last Modified By Organization Details Last Modified Time Details Appointments None recorded. Lab None recorded. Referral None recorded. Procedures None recorded. Surgeries None recorded. Imaging None recorded. Medication Orders Cipro 500 mg tablet 2021 [facility] [id number], [place], [address], 13:24:31 metronidazo le 0.75 % (37.5 mg/5 gram) vaginal gel 2021 [facility] [id number], [place], [address], 13:24:30 Patient TargetsNo targets recorded. Patient InstructionsNo instructions recorded. Reason for Referral None Reported. Results Created Date Observation Date Name Description Value Unit Range Abnormal Flag Note LastModifiedBy Organization Detail LastModifiedTime 11/18/1911/17/2021 VAGIN ITIS/ VAGIN OSIS, DNA PROBE saen sp. detection, direct probe Negati ve negati ve Not Available [facility] (Lab) [address], [place], [address], 11/19/2021 02:46:07 11/18/19 22 11/17/2021 VAGIN ITIS/ VAGIN OSIS, DNA PROBE gardnerella vag. detection, direct probe Negati ve negati ve Not Available [facility] (Lab) [address] [place], [address], 11/19/2021 02:46:07 11/18/19 22 11/17/2021 VAGIN ITIS/ VAGIN OSIS, DNA PROBE trichomonas vag. detection, direct probe Negati ve negati ve Not Available [facility] (Lab) [address] [facility], [place], [address], 11/19/2021 02:46:07 11/18/19 22 11/17/2021 CULTU RE: URINE result report SEE RESULT S BELOW Test: Cultu re: Urine Speci men Sourc e: Urine - Clean Catch Speci men Type: Urine Speci men Date: 2021 2:02 PM Resul t Date: 2021 1:42 AM Resul t Statu s: Final resul t Abnor mal: No Resul ting Lab: [facility] [address] [facility] [address] Tel: CULTU RE ----- ----- ----- --- Cultu re resul t (>=3 organ isms prese nt) indic ates possi ble conta minat ion. Repea t cultu re if sympt oms indic ate. Not Available [facility] (Lab) [address] [facility], [place], [address], 11/19/2021 02:46:07 11/18/19 22 11/17/2021 urina lysis , dipst ick Leukocytes +2 Not Available [facility] [address], [place], [address], 11/17/2021 13:18:38 11/18/19 22 11/17/2021 urina lysis , dipst ick Blood trace Not Available [facility] [address], [place], [address], 11/17/2021 13:18:38 Result Notes None recorded. Medical Equipment None Reported. Allergies Allergen ID Allergen Name Allergen Category Reaction Reaction Severity Criticality Documentation Date Start Date Code Code System Note Provider Name and Address Organization Details Recorded Time 87039 codeine medicatio n Not available Not available Not available 11/17/2021 2670 RxNorm Radha Black [facility] 12:53:07 Medications Name Sig Start Date Stop Date Status Note LastModified by Organization Details LastModified Time metformin 500 mg tablet active Not Available Not Available Not Available metronidazol e 0.75 % (37.5 mg/5 gram) vaginal gel INSERT 1 APPLICATORF UL VAGINALLY ONCE DAILY active Not Available Not Available N ot Available ciprofloxaci n 500 mg tablet TAKE 1 TABLET BY MOUTH EVERY 12 HOURS active Not Available Not Available No t Available amitriptylin e 10 mg tablet active Not Available Not Available Not Available amlodipine 10 mg tablet TAKE 1 TABLET BY MOUTH ONCE DAILY active Not Available Not Available No t Available pantoprazole 40 mg tablet,delay ed release TAKE 1 TABLET BY MOUTH ONCE DAILY active Not Available Not Available No t Available hydrocortiso ne-aloe vera 1 % topical cream active Not Available Not Available Not Available cholestyrami ne (with sugar) 4 gram powder for susp in a packet active Not Available Not Available Not Available Vitamin D3 50 mcg (2,000 unit) tablet active Not Available Not Available Not Available Vitals Date Recorded Body weight Systolic blood pressure Diastolic blood pressure Provider Name and Address Organization Details Last Updated DateTime 11/17/2021 71017.4 g 162 mm[Hg] 96 mm[Hg] Radha Black [facility] 11/17/2021 12:52:55 Social History None recorded. Functional Status None recorded. Mental Status None recorded. Family History Nothing Reported. Medical History No medical history recorded. Gynecological History Statement/Question Response Date of Last Pap Smear Current Control Method Menopause Obstetrics History GPAL:G 3 P 0 0 0 3 Type Value Living 3 Total 3 Past Encounters Encounter ID Performer Location Encounter Start Date Encounter Closed Date Diagnosis/Indication Diagnosis SNOMED-CT Code Diagnosis ICD10 Code Diagnosis Note [id number] Roberto Campa MD [facility] [address] [address] 11/17/2021 12:04:56 11/17/2021 13:31:37 Urinary tract infectious disease 54272459 N39.0 Bacterial vaginosis 4197 98338 N76.0 this patient is a 71-year-ol d female presents for white vaginal discharge that is nonodorous and nonpruriti c. She has some low back pain. She denies any urinary symptoms. Her vulva and distal vagina appeared normal on examinatio n. She does have a urine dip that has significan t numbers leukocytes . We agreed to treat for urinary tract infection and for vaginosis. Health Concerns Section Related Observation LastModified by Organization Detai ls LastModified Time None Recorded Concern Status LastModified by Organization Details LastModified Time None Recorded Advance Directives Directive None Recorded Payers Encounter Date Sequence Insurance Name Policy Number Policy [place] Covered Member ID [place] Member ID Guarantor Name 11/17/2021 1 [facility] - DOS ON OR AFTER 21 (MEDICAID REPLACEMENT - HMO) Samia Harley [id number] Samia Harley Notes Date Note Type Note Provider Name and Address Organization Details Recorded Time 11/17/2021 text/html this patient is a 71-year-old female presents for white vaginal discharge that is nonodorous and nonpruritic. She has some low back pain. She denies any urinary symptoms. Her vulva and distal vagina appeared normal on examination. She does have a urine dip that has significant numbers leukocytes. We agreed to treat for urinary tract infection and for vaginosis. Roberto Campa MD [address], [place], [address], [facility] 11/17/2021 13:24:50 OBGyn Episode No OBEpisode recorded.
--- OUTSIDE RECORDS SUMMARY | 2024-11-06 10:03 | XMS_ITS | Patient Health Summary ---
Author Organization [facility] Address [address] [place] [place] [address] Care Team Providers Care Parts Counterman Name Role Phone Miller Mcgrath MD Primary Care Provider Note from [facility],non-owned Affiliates and Associated Physician Practices is amultiple site organization consisting of ambulatory clinics and hospital sitesin [place], [place], [place] and [place]. This disclosure is being madepursuant to the Care Everywhere program and may not contain all information available regarding this patient. Last updated 18.[facility] Allergies * Aspirin(Rash) -Medium Criticality * Codeine(Rash) -Medium Criticality * Nsaids(Rash) -Medium Criticality Medications * Be aware that medications may not be up to date on this document. Alwaysverify current medications with the patient. * amLODIPine (NORVASC) 10 MG tablet Take 1 tablet by mouth once daily * hydrocortisone (HYTONE) 1 % cream(Started 07/27/2019) as needed * metFORMIN ER 24hr (GLUCOPHAGE XR) 500 MG tablet Take 1 tablet by mouth once daily * pantoprazole EC (PROTONIX) 40 MG tablet Take 1 tablet by mouth every 8 hours as needed * vitamin D, cholecalciferol, 50 MCG (2000 UT) tablet Take 2,000 Units by mouth once daily * Misc Natural Products (JOINT SUPPORT COMPLEX PO) Take 1 tablet by mouth once daily * Cyanocobalamin (B-12) 1000 MCG Take 1 tablet by mouth once daily * MEGARED OMEGA-3 KRILL OIL 500 MG CAPS Take 1 tablet by mouth once daily * Multiple Vitamins-Minerals (CENTRUM SILVER ADULT 50+ PO) Take 1 tablet by mouth once daily * acetaminophen (TYLENOL) 500 MG tablet(Started 09/15/2019) Take 1 tablet by mouth every 6 hours as needed for Fever or Pain Maximum allowable Acetaminophen amount = 4 Grams (4000 mg) / 24 hours. * traMADol (ULTRAM) 50 MG tablet(Started 09/15/2019) Take 1 tablet by mouth every 6 hours as needed for Pain * tamsulosin (FLOMAX) 0.4 MG capsule(Started 09/15/2019) Take 1 capsule by mouth once daily At the same time every day after a meal. Social History Tobacco Use Types Packs/Day Years [...] Comments Blood Pressure 153/85 09/15/2019 8:30 PM OSTRICH FARMER Pulse 73 09/15/2019 8:30 PM OSTRICH FARMER Temperature 36.4 C (97.6 F) 09/15/2019 7:10 PM OSTRICH FARMER Respiratory Rate 25 09/15/2019 8:30 PM OSTRICH FARMER Oxygen Saturation 98% 09/15/2019 8:30 PM OSTRICH FARMER Inhaled Oxygen Concentration - - Weight 78 kg (172 lb) 09/15/2019 2:23 PM OSTRICH FARMER Height 157.5 cm (5' 2 ) 09/15/2019 2:23 PM OSTRICH FARMER Body Mass Index 31.46 09/15/2019 2:23 PM OSTRICH FARMER Medical Devices Implanted Type Area [employer] Spray Supervisor Device Identifier Shelf Expiration Date Model / Serial / Lot Stent Uret 6fr 24cm 2 Drmtr Bldr Loop Implanted:Qty: 1 on 09/15/2019 by Henrietta Garcia DO at [facility] Left: Ureter [employer] 11/23/2021 [id number] / / [id number] Procedures * GLUCOSE - POINT OF CARE(Performed 09/15/2019) * PATHOLOGY TISSUE(Performed 09/15/2019) Performed for Kidney stone * STONE ANALYSIS QUANT(Performed 09/15/2019) Performed for Kidney stone * IN CYSTO/URETERO/PYELOSCOPY W/LITHOTRIPSY(Performed 09/15/2019) Performed for Kidney stone * ENDOTRACHEAL TUBE NOTE(Performed 09/15/2019) * GLUCOSE - POINT OF CARE(Performed 09/15/2019) * FL JOHN SURGERY(Performed 09/15/2019) Performed for Kidney stone * CBC W AUTO DIFFERENTIAL(Performed 09/11/2019) * URINALYSIS W/MICROSCOPIC NO CULTURE(Performed 09/11/2019) * BASIC METABOLIC PANEL (CALCIUM TOTAL)(Performed 09/11/2019) * CULTURE URINE(Performed 09/11/2019) Results * (ABNORMAL) GLUCOSE - POINT OF CARE (09/15/2019 7:22 PM OSTRICH FARMER) Only the most recent of2 resultswithin the time period is included. Pathologist [facility] Glucose WB/POC 144(H) 70 - 115 mg/dL 09/15/2019 7:29 PM OSTRICH FARMER [facility] Specimen Type Arterial/C apillary 09/15/2019 7:29 PM OSTRICH FARMER [facility] Blood BLOOD SPECIMEN / Unknown 09/15/2019 7:22 PM OSTRICH FARMER 09/15/2019 7:29 PM OSTRICH FARMER Henrietta Garcia DO LAB - POINT OF CAR E ORDERABLES [facility] [address] [place] [address] * PATHOLOGY TISSUE (09/15/2019 7:03 PM OSTRICH FARMER) Case Report Surgical Pathology Report Case: [id number] Authorizing Provider: Henrietta Garcia DO Collected: 09/15/2019 07:03 PM Ordering Location: [facility] Received: 09/16/2019 06:13 AM Pathologist: Kendra Baker MD Specimen: Calculus, ureteral stones 09/16/2019 5:05 PM OSTRICH FARMER [facility] Final Diagnosis Kidney/ureter, left, stone extraction (A): - Calculi 09/16/2019 5:05 PM OSTRICH FARMER [facility] Clinical History The patient is a 69-year-old woman with a left ureteral stone. Operative procedure/findings: Left ureteroscopic stone extraction. 09/16/2019 5:05 PM [facility] Gross Description The requisition and specimen label(s) are identified with the patient name, Samia Harley. Received fresh, Specimen A are multiple irregularly shaped fragments of chalky, yellow-vitale stones ranging from 0.1 to 0.3 cm in greatest dimension, with an aggregate measurement of 1.5 x 0.3 x 0.3 cm. This is a gross examination only. No sections are taken. The specimen is placed in the send out box for analysis. 09/16/2019 5:05 PM [facility] Disclaimer The performance characteristics of all immunohistochemical and indirect immunofluorescence stains (if any) cited in this report were determined by the Histopathology Laboratory of [facility]. Some of these tests were developed by our own laboratory and have not been cleared or approved by the US Food and Drug Administration. The FDA does not require this test to go through premarket FDA review. These tests are used for clinical purposes. They should not be regarded as investigational or for research. This laboratory is certified under the Clinical Laboratory Improvement Amendments (CLIA) as qualified to perform high complexity clinical laboratory testing. This case has been personally reviewed and interpreted by the attending (teaching) pathologist. 09/16/2019 5:05 PM [facility] Embedded Images 09/16/2019 5:05 PM [facility] Gross only CALCULUS SPECIMEN / Unknown 09/15/2019 7:03 PM OSTRICH FARMER 09/16/2019 6:13 AM OSTRICH FARMER Comment:Pre-op diagnosis: N20.0 Henrietta Garcia DO LAB - PATHOLOGY/LAKSHMI JOHNSON ORDERABLES [facility] [address] [place] [address], [facility] [phone] * STONE ANALYSIS QUANT (09/15/2019 6:34 PM OSTRICH FARMER) Stone Source Comment 10/07/2019 3:08 PM OSTRICH FARMER [facility] ([facility]) Comment:Not provided Stone color Vitale 10/07/2019 3:08 PM OSTRICH FARMER [facility]) Stone size 4x3 mm 10/07/2019 3:08 PM OSTRICH FARMER [facility]) Comment:Specimen received as fragments. Stone Weight 159.6 mg 10/07/2019 3:08 PM OSTRICH FARMER [facility]) Stone Composition Comment 020 3:08 PM OSTRICH FARMER [facility]) Comment:Percentage (Represen ts the % composition) Calcium Oxalate Monoh 60 % 10/07/2019 3:08 PM OSTRICH FARMER [facility]) Calcium Oxalate Dihyd 20 % 10/07/2019 3:08 PM OSTRICH FARMER [facility]) Hydroxyapatite 20 % 10/07/2019 3:08 PM OSTRICH FARMER [facility]) Stone photo Comment 10/07/2019 3:08 PM OSTRICH FARMER [facility]) Comment:Photograph will foll ow under a separate cover Comment: Comment 10/07/2019 3:08 PM OSTRICH FARMER [facility]) Comment: Physician questions regarding Calculi Analysis contact [facility] at: [phone]. Please Note: Comment 10/07/2019 3:08 PM OSTRICH FARMER [facility]) Comment: Calculi report with photograph will follow via computer, mail or internal review and audit compliance delivery. Disclaimer: Comment 10/07/2019 3:08 PM OSTRICH FARMER [facility]) Comment: This test was developed and its performance characteristics determined by [facility]. It has not been cleared or approved by the Food and Drug Administration. PDF . 10/07/2019 3:08 PM OSTRICH FARMER [facility] ([facility]) Pathology/Cytolo gy CALCULUS SPECIMEN / Unknown Collection / Unknown 09/15/2019 6:34 PM OSTRICH FARMER 09/24/2019 2:27 PM OSTRICH FARMER Narrative [facility] ([facility]) - 10/07/2019 3:08 PM OSTRICH FARMER Performed at: 01 - [facility] [address] [place] [address] [address], [place], [place] [id number] Monorail Crane Operator: Dieudonne Wells MD, Phone: [phone] Henrietta Garcia DO LAB - URINE CHEMIS TRY ORDERABLES [facility] ([facility]) [address] [place] [address], [facility] * ETT LINE PERFORMABLE (09/15/2019 5:59 PM OSTRICH FARMER) Serena Santamaria)EDGAR - 09/15/2019 5:59 PM OSTRICH FARMER Serena Davidson APRN-CRNA (Nick) 09/15/2019 6:00 PM Endotracheal Tube Placement: Patient Location: OR. Intubation Event Date/Time: 09/15/2019 5:50 PM Procedure: intubation (18308). Procedure Section: Sedation: under general anesthesia. Indications for Airway Management: anesthesia Procedure pretreatments used? No Induction: standard IV Patient Position: sniffing Mask Ventilation: easy. Blade Type: Chrissie Blade Size: 3 Laryngoscopy View: grade 1 (full cords) Intubation Adjuncts: cricoid pressure and stylet Tube: endotracheal tube Placement: oral Tube type: cuff - inflated Tube Size (MM): 7 Depth of Insertion (CM): 21 Measured From: lips Cuff volume (mL): 7 Cuff Inflated With: air Ventilation between attempts: No. Placement Verified By: direct visualization, bilateral breath sounds, chest auscultation and CO2 monitor Tube secured with: adhesive tape. Difficult Airway? No. Procedure Start Time: 09/15/2019 5:50 PM. Staff Section Anesthesia Provider: Serena Davidson), EDGAR, Performed the procedure Elba Oliver MD GENERAL ANESTHESIA O RDERABLES * FL JOHN SURGERY (09/15/2019 7:35 AM OSTRICH FARMER) Narrative [facility] - 09/15/2019 7:39 PM OSTRICH FARMER Fluoroscopy was used for this exam in the OR. Please see the Operative report. Henrietta Garcia DO FLUOROSCOPY ORDERA BLES [facility] * (ABNORMAL) URINALYSIS W/MICROSCOPIC NO CULTURE (09/11/2019 8:19 AM OSTRICH FARMER) Color UA YELLOW YELLOW [facility] Appearance CLOUDY(A) CLEAR [facility] Specific [place] UA 1.011 1.001 - 1.035 [facility] pH UA 6.5 5.0 - 8.0 [facility] Glucose UA NEGATIVE NEGATIVE [facility] Bilirubin UA NEGATIVE NEGATIVE [facility] Ketone UA NEGATIVE NEGATIVE [facility] Blood UA 3+(A) NEGATIVE [facility] Protein UA 1+(A) NEGATIVE [facility] Nitrite UA NEGATIVE NEGATIVE [facility] Leukocyte UA 2+(A) NEGATIVE [facility] WBC UA 10-20(A) < OR = 5 /HPF [facility] RBC UA 20-40(A) < OR = 2 /HPF [facility] Epithelial Cell UA 10-20(A) < OR = 5 /HPF [facility] Bacteria UA FEW(A) NONE SEEN /HPF [facility] Hyaline Casts NONE SEEN NONE SEEN /LPF [facility] Comments FEW MUCOUS THREADS [facility] Comment: Test Performed at: [facility] [address] [place] [address] MANGO PABLO DO,MPH 09/11/2019 8:19 AM OSTRICH FARMER 09/11/2019 8:22 AM OSTRICH FARMER Henrietta Garcia DO LAB - URINALYSIS O RDERABLES Performing Organization Address [facility] Co de Phone Number [address] [address] * CULTURE URINE (09/11/2019 8:19 AM OSTRICH FARMER) Pathologist [facility] Culture [facility] Comment: CULTURE, URINE, ROUTINE Micro Number: [id number] Test Status: Final Specimen Source: URINE, CLEAN CATCH Specimen Quality: Adequate Result: No Growth Test Performed at: [facility] [address] GLO BROWN MD 09/11/2019 8:19 AM OSTRICH FARMER 09/11/2019 8:22 AM OSTRICH FARMER Henrietta Garcia DO LAB - MICROBIOLOGY ORDERABLES Performing Organization Address [facility] Co de Phone Number [address] [address] * CBC WITH DIFFERENTIAL (09/11/2019 8:19 AM OSTRICH FARMER) Pathologist [facility] White Blood Cell Count 7.0 3.8 - 10.8 Thousand/u L [facility] RBC 4.88 3.80 - 5.10 Million/uL [facility] Hemoglobin 14.7 11.7 - 15.5 g/dL [facility] Hematocrit 43.5 35.0 - 45.0 % [facility] MCV 89.1 80.0 - 100.0 fL [facility] MCH 30.1 27.0 - 33.0 pg [facility] MCHC 33.8 32.0 - 36.0 g/dL [facility] RDW 13.0 11.0 - 15.0 % [facility] Platelet Count 269 140 - 400 Thousand/u L [facility] MPV 11.2 7.5 - 12.5 fL [facility] Neutrophil Absolute 4389 1500 - 7800 cells/uL [facility] Absolute Bands [facility] Metamyelocytes Absolute [facility] Myelocytes Absolute [facility] Absolute Prolymphocytes [facility] Lymphocytes Absolute 2030 850 - 3900 cells/uL [facility] Absolute Monocytes 406 200 - 950 cells/uL [facility] Eosinophils Absolute 126 15 - 500 cells/uL [facility] Basophils Absolute 49 0 - 200 cells/uL [facility] Absolute Blasts [facility] nRBC Absolute [facility] Granulocytes % 62.7 % [facility] Band Neutrophil [facility] Metamyelocytes [facility] Myelocytes [facility] Promyelocytes [facility] Lymphocytes % 29.0 % [facility] Lymphocyte Reactive [facility] Monocytes % 5.8 % [facility] Eosinophils % 1.8 % [facility] Basophils % 0.7 % [facility] Comment: Test Performed at: [facility] [place] [address] MANGO PABLO DO,MPH Blasts [facility] nRBC [facility] Comments [facility] Comment: Test Performed at: [facility] [address] [address] MANGO PABLO DO,MPH 09/11/2019 8:19 AM OSTRICH FARMER 09/11/2019 8:22 AM OSTRICH FARMER Henrietta Garcia DO LAB - HEMATOLOGY O RDERABLES Performing Organization Address City/State/[facility] Co de Phone Number [facility] [address] [place] [address] * (ABNORMAL) BASIC METABOLIC PANEL (CALCIUM TOTAL) (09/11/2019 8:19 AM OSTRICH FARMER) Glucose 142(H) 65 - 99 mg/dL [facility] Comment: Fasting reference interval For someone without known diabetes, a glucose value >125 mg/dL indicates that they may have diabetes and this should be confirmed with a follow-up test. BUN 19 7 - 25 mg/dL [facility] Creatinine 0.80 0.60 - 0.93 mg/dL [facility] Comment: For patients >49 years of age, the reference limit for Creatinine is approximately 13% higher for people identified as -Bruneian. eGFR by MDRD 74 > OR = 60 mL/min/1 .73m2 [facility] eGFR by MDRD 86 > OR = 60 mL/min/1 .73m2 [facility] BUN/Creatinine Ratio NOT APPLICABLE 6 - 22 (calc) [facility] Sodium 140 135 - 146 mmol/L [facility] Potassium 4.4 3.5 - 5.3 mmol/L [facility] Chloride 104 98 - 110 mmol/L [facility] CO2 23 20 - 32 mmol/L [facility] Calcium 9.8 8.6 - 10.4 mg/dL [facility] Comment: Test Performed at: [facility] [address] [place] [address] MANGO PABLO DO,MPH 09/11/2019 8:19 AM OSTRICH FARMER 09/11/2019 8:22 AM OSTRICH FARMER Henrietta Garcia DO LAB - CHEMISTRY OR DERABLES Performing Organization Address City/State/[facility] Co de Phone Number [facility] [address] [place] [address] Care Teams Parts Counterman Relationship Specialty Start Date End Date Miller Mcgrath MD [address] [place] [address] PCP - General 09/01/19
--- OUTSIDE RECORDS SUMMARY | 2024-11-06 10:03 | XMS_ITS | Encounter Summary ---
Author Organization [facility] Address [address] [place] [address] Phone Care Team Providers Care Certified Medical Coder Name Role Phone Miller Mcgrath MD Primary Care Provider Jorge Fall MD Unavailable [phone] Reason for Visit * Reason Comments Medication Refill Encounter Details Date Type Department Care Team (Late st Contact Info) Description 10/25/2023 Refill [facility] - Gastroenterology - [place] [address] [place] [id number] Jennifer Anguiano APRN, INDUSTRIAL SALES REPRESENTATIVE [address] [place] [address] Medication Refill Social History Tobacco Use Types Packs/Day Years Used Date Smoking Tobacco: Never Smokeless Tobacco: Never Alcohol Use Standard Drinks/Week Comments Never 0 (1 standard drink = 0.6 oz pur e alcohol) AUDIT-C Answer Date Recorded Q1: How often do you have a drink containing alc ohol? Never 03/10/2020 Average Number of Drinks Not on file 020 Frequency of Binge Drinking Not on file 02/23 Sexually Active Control Partners Comments Yes Comments No Sex and Gender Information Value Date Recorded Sex Assigned at Not on file Legal Sex Female 7:26 AM FEDERAL AGENT Gender Identity Not on file Sexual Orientation Not on file documented as of this encounter Miscellaneous Notes * Telephone Encounter - Molly Dozier RN - 10/29/2023 10:33 AM FEDERAL AGENT Medication failed the protocol, provider to review and approve the medication order if appropriate. Requested Prescriptions Pending Prescriptions Disp Refills amitriptyline (ELAVIL) 10 MG Tablet [Pharmacy Med Name: Amitriptyline HCl 10 MG Oral Tablet] 90 Tablet 0 Sig: TAKE 1 TABLET BY MOUTH ONCE NIGHTLY Not Delegated - Tricyclic Agents Protocol Failed - 10/25/2023 9:26 AM Failed - This refill cannot be delegated Passed - Visit with relevant provider in past 12 months or upcoming 90 days Recent Visits Date Type Provider Dept 01/10/23 Office Visit Jorge Fall MD [facility] Showing recent visits within past 365 days and meeting all other requirements Future Appointments No visits were found meeting these conditions. Showing future appointments within next 90 days and meeting all other requirements RAL AGENT documented in this encounter Plan of Treatment Not on file documented as of this encounter Visit Diagnoses Not on filedocumented in this encounter Care Teams Certified Medical Coder Relationship Specialty Start Date End Date Miller Mcgrath MD [address] [address] PCP - General Family Medicine 03/10/20 Jorge Fall MD [address] [place] [address] Consulting Physician Gastroenterology 12/07/21 documented as of this encounter
--- OUTSIDE RECORDS SUMMARY | 2024-11-06 10:03 | XMS_ITS | Encounter Summary ---
Author Organization [facility] Address [address] [place] [address] Phone Care Team Providers Care Manager Proposal Name Role Phone Miller Mcgrath MD Primary Care Provider [phone] Jorge Fall MD Unavailable [phone] Reason for Visit * Reason Comments Medication Refill Encounter Details Date Type Department Care Team (Late st Contact Info) Description 07/16/2023 Refill [facility] - Gastroenterology [facility] [address] [place] [id number] Jorge Fall MD [address] [place] [address] Medication Refill Social History Tobacco Use Types [...] on file Legal Sex Female 7:26 AM ESL TEACHER Gender Identity Not on file Sexual Orientation Not on file documented as of this encounter Miscellaneous Notes * Telephone Encounter - Molly Dozier RN - 07/16/2023 10:10 AM ESL TEACHER Medication failed the protocol, provider to review and approve the medication order if appropriate. Routing to provider for review due to Dr. Fall is out of office. Please review. Requested Prescriptions Pending Prescriptions Disp Refills amitriptyline (ELAVIL) 10 MG Tablet [Pharmacy Med Name: Amitriptyline HCl 10 MG Oral Tablet] 90 Tablet 0 Sig: Take 1 Tablet by mouth nightly. Not Delegated - Tricyclic Agents Protocol Failed - 07/16/2023 10:06 AM Failed - This refill cannot be delegated Passed - Visit with relevant provider in past 12 months or upcoming 90 days Recent Visits Date Type Provider Dept 01/10/23 Office Visit Jorge Fall MD [facility] Showing recent visits within past 365 days and meeting all other requirements Future Appointments No visits were found meeting these conditions. Showing future appointments within next 90 days and meeting all other requirements TEACHER documented in this encounter Plan of Treatment Not on file documented as of this encounter Visit Diagnoses Not on filedocumented in this encounter Care Teams Manager Proposal Relationship Specialty Start Date End Date Miller Mcgrath MD [address] [address] PCP - General Family Medicine 03/10/20 Jorge Fall MD [address] [place] [address] Consulting Physician Gastroenterology 12/07/21 documented as of this encounter
--- OUTSIDE RECORDS SUMMARY | 2024-11-06 10:03 | XMS_ITS | Clinical Summary ---
Author Organization [facility] Address [address] [address] Phone Care Team Providers Care Per Diem Physical Therapist Name Role Phone Miller Mcgrath MD Primary Care Provider [phone] Jorge Fall MD Unavailable [phone] Allergies Active Allergy Reactions Criticality Noted Date Comments Aspirin Rash Medium 09/09/2019 Codeine Nausea,Rash Medium 07/22/2019 Nsaids Rash Medium 09/09/2019 Medications amLODIPine (NORVASC) 10 MG Tablet every morning. Active metFORMIN (GLUCOPHAGE) 500 MG Tablet Take 500 mg by mouth every morning. Active Cyanocobalamin (B-12) 1000 MCG Capsule Take 1 Tablet by mouth every morning. Active Multiple Vitamins-Minera ls (CENTRUM SILVER PO) Take by mouth every morning. Active Coenzyme [id number] 3 Fatty Acd (HEALTHY HEART PO) Take by mouth. Active Simethicone (GAS-X PO) Take by mouth as needed. Active Inulin (FIBER CHOICE PO) Take by mouth daily. Active pantoprazole (PROTONIX) 40 MG Pack Take 40 mg by mouth daily. 30 Packet 05/30/2021 Active dicyclomine (BENTYL) 20 MG Tablet Take 1 Tablet by mouth 2 times daily. 120 Tablet 2 12/07/2021 Active amitriptyline (ELAVIL) 10 MG Tablet TAKE 1 TABLET BY MOUTH ONCE NIGHTLY 90 Tablet 10/29/2023 Active Active Problems Problem Noted Date Diagnosed Date NAFLD (nonalcoholic fatty liver disease) 021 Gastroesophageal reflux disease without esophagi tis 06/10/2020 Irritable bowel syndrome wit h both constipation and diarrhea 06/10/2020 Pancreatic cyst 06/10/2020 Arthritis 08/12/2019 Diabetes mellitus 08/12/2019 Kidney stone 08/12/2019 Malignant tumor of colon 08/12/2019 Hypertension associated with diabetes 07/22/2019 Overview (03/10/2020): Last Assessment & Plan: Condition: stable Discussed glucose control targets. Educated on: Lifestyle changes, Nutrition and Medication compliance. Samia educated on behavior modifications to include DASH diet, increasing their intake of vegetables, water and whole foods as well as increasing their level of exercise weekly to 3- 4 times after medical clearance from your PCP. Discussed with her the need to reduce their intake of foods high in salt, sugar, fat and preservatives. Samia encouraged to stay compliant with medication regimen and behavior modification recommendations in order to achieve a healthier lifestyle and reduce their risks. Samia verbalized understanding. Member advised to keep all scheduled appointments. Follow up in: one year with PCP and Lab Intern Vitamin D deficiency 07/22/2019 Overview (03/10/2020): Last Assessment & Plan: Condition: stable Follow up in: three months with PCP Immunizations Immunization Administration Dates Next Due Covid-19, Mrna, Lnp-s, Pf, 30 Mcg/0.3 Ml Dose (Angelita estrada) 11/16/2020,10/27/2020 Influenza Vaccine, MDCK,quadrivalent, pres free 05/27/2019 Influenza Vaccine, Quadrivalent, PF 04/26/2020,1 Influenza, Quadrivalent, Adjuvanted 07/17/2021,0 04/26/2020 Influenza, Seasonal, Injectable, Undefined 06/21 Influenza, Trivalent, Adjuvanted, PF 05/08/2019, 06/03/2018 Influenza, high-dose, trivalent, PF 06/09/2014 Pneumococcal PCV, Unspecified Formulation 2013 Family History Medical History Relation Name Comments No Known Problems Brother No Known Problems Father No Known Problems Maternal Aunt No Known Problems Maternal Grandmother No Known Problems Maternal Uncle No Known Problems Mother No Known Problems Paternal Aunt No Known Problems Paternal Uncle No Known Problems Sister Relation Name Status Comments Brother Father Maternal Aunt Maternal Grandmother Maternal Uncle Mother Paternal Aunt Paternal Uncle Sister Social History Tobacco Use Types Packs/Day Years Used Date Smoking Tobacco: Never Smokeless Tobacco: Never Tobacco Cessation:Counseling Given: Not Answered Alcohol Use Standard Drinks/Week Comments Never 0 [...] on file 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 Gender Identity Not on file Sexual Orientation Not on file Last Filed Vital Signs Vital Sign Reading Time Taken Comments Blood Pressure 132/98 01/10/2023 8:13 AM CDT Pulse 67 01/10/2023 8:13 AM CDT Temperature 36.8 C (98.2 F) 01/10/2023 8:13 AM CDT Respiratory Rate 14 01/10/2023 8:13 AM CDT Oxygen Saturation 98% 01/10/2023 8:13 AM CDT Inhaled Oxygen Concentration - - Weight 81.3 kg (179 lb 3.2 oz) 01/10/2023 8:13 A M CDT Height 165.1 cm (5' 5 ) 01/10/2023 8:13 AM CDT Body Mass Index 29.82 01/10/2023 8:13 AM CDT Plan of Treatment Health Maintenance Due Date Last Done Comments DEXA Bone Density 1948 Diabetes: Foot Exam 1950 Hepatitis C Virus (HCV) Screening 1950 TdaP Immunization 1950 Pneumococcal Immunization (50+ years) (1 of 2 - PCV) 1967 10/16/2013 Zoster Immunization (1 of 2) 1967 Diabetes: Eye Exam 07/22/2020 07/22/2019 Diabetes: Nephropathy Screening 03/28/2022 03/28/2021, 03/28/2021 Diabetes: Hemoglobin A1c 05/09/2022 11/06/2021, 06/27 Respiratory Syncytial Virus (RSV) Immunization (Adult) (1 - 1-dose 75+ series) 2023 Influenza Immunization (#1) 04/26/202406/27, 04/26/2020, 04/26/2020, Additional history exists SARS-COV-2 Immunization ( season) 2024 12/11/2021, 06/01/2021, 11/16/2020, Additional history exists Pneumococcal Immunization Combined Discontinued 10/16/2013 Colonoscopy High Risk Discontinued 04/13/2020 Colonoscopy Discontinued 04/13/2020 Colorectal Cancer Screening Discontinued Cologuard Discontinued Hepatitis B Immunization Aged Out No longer eligible based on patient's age to complete this topic Immunochemical Fecal Occult Blood Discontinued Meningococcal Immunization (ACWY) Aged Out No longer eligible based on patient's age to complete this topic Rotavirus Immunization Aged Out No lo nger eligible based on patient's age to complete this topic Procedures Procedure Name Priority Date/Time Associated Diagnosis Comments UR MICROALBUMIN/CREATI NINE RATIO RANDOM 03/28/2021 12:00 AM CDT from Last 3 Months or Most Recently Relevant to Health Maintenance Results * UR MICROALBUMIN/CREATININE RATIO RANDOM (03/28/2021 12:00 AM CDT) ALB/CREAT RATIO 11 Normal - Normal SCAN Urine 03/28/2021 us Not On File Provider URINE ORDERABLES Final Resu lt SCAN from Last 3 Months or Most Recently Relevant to Health Maintenance Insurance MEDICAID [facility] Care Teams Per Diem Physical Therapist Relationship Specialty Start Date End Date Miller Mcgrath MD [address] [id number] PCP - General Family Medicine 03/10/20 Jorge Fall MD [address] [place] [address] Consulting Physician Gastroenterology 12/07/21
--- OUTSIDE RECORDS SUMMARY | 2024-11-06 10:03 | XMS_ITS | Referral Summary ---
Author Organization [facility] Address [address] [place] [address] Care Team Providers Care Cms Expert Name Role Phone Miller Mcgrath MD Primary Care Provider Source Comments [facility],non-owned Affiliates and Associated Physician Practices is amultiple site organization consisting of ambulatory clinics and hospital sitesin [place], [place], [place] and [place]. This disclosure is being madepursuant to the Care Everywhere program and may not contain all information available regarding this patient. 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 Pulse 73 09/15/2019 8:30 PM MACHINE II CUTTER Temperature 36.4 C (97.6 F) 09/15/2019 7:10 PM MACHINE II CUTTER Respiratory Rate 25 09/15/2019 8:30 PM MACHINE II CUTTER Oxygen Saturation 98% 09/15/2019 8:30 PM MACHINE II CUTTER Inhaled Oxygen Concentration - - Weight 78 kg (172 lb) 09/15/2019 2:23 PM MACHINE II CUTTER Height 157.5 cm (5' 2 ) 09/15/2019 2:23 PM MACHINE II CUTTER Body Mass Index 31.46 09/15/2019 2:23 PM MACHINE II CUTTER Plan of Treatment Not on file Medical Devices Implanted Type Area Cash Applications Manager Device Identifier Shelf Expiration Date Model / Serial / Lot Stent Uret 6fr 24cm 2 Drmtr Bldr Loop Implanted:Qty: 1 on 09/15/2019 by Henrietta Garcia DO at [facility] Left: Ureter [employer]ed 11/23/2021 [id number] / / [id number] Advance Directives Documents on File Type Date Recorded Patient Pill Packer Expl anation Adv Directive/Living Will/POA 09/16/2019 3:16 PM * Full Code (Latest Code Status on File) Date Activated Date Inactivated Comments 09/15/2019 1:44 PM 09/15/2019 10:32 PM Care Teams Cms Expert Relationship Specialty Start Date End Date Miller Mcgrath MD [address] [place] [address] PCP - General 09/01/19
== END 2024-11-06 09:27 | disposition home or self-care (01) ==
PROVIDERS: PCP Family Medicine; Visit Provider Nurse Practitioner Family
DX: R10.30 Lower abdominal pain, unspecified (principal); R63.4 Abnormal weight loss; Z68.27 Body mass index [BMI] 27.0-27.9, adult
CPT/HCPCS: 74177; Q9967